=== PATIENT | female | born 1935 | race Caucasian/White ===

== ENCOUNTER 2019-08-12 14:50 | Inpatient (IN) | payer MEDICARE ==
[~2019-08-12] VITALS: Ht 154.9 cm; Wt 50.3 kg
[2019-08-12 15:21] LABS: BASOPHILS % (AUTO) 0.5 % (0.0-2.0); EOSINOPHILS # (AUTO) 0.1 K/uL (0.0-0.7); EOSINOPHILS % (AUTO) 1.3 % (0.0-7.0); HEMATOCRIT 32.4 % (31.2-41.9); HEMOGLOBIN 10.7 g/dL (10.9-14.3); LYMPHOCYTES # (AUTO) 0.4 K/uL (20.0-40.0); LYMPHOCYTES % (AUTO) 6.1 % (20.5-51.5); MEAN CORPUSCULAR HEMOGLOBIN 31.3 uug (24.7-32.8); MEAN CORPUSCULAR HGB CONC 33 g/dL (32.3-35.6); MEAN CORPUSCULAR VOLUME 94.6 fL (75.5-95.3); MONOCYTES # (AUTO) 0.8 K/uL (2.0-10.0); MONOCYTES % (AUTO) 12.2 % (0.0-11.0); NEUTROPHILS % (AUTO) 79.9 % (38.5-71.5); PLATELET COUNT (AUTO) 242 K/uL (179-408); RED BLOOD CELL COUNT(AUTO) 3.42 MIL/uL (3.63-4.92); WHITE BLOOD COUNT (AUTO) 6.3 K/uL (3.8-11.8)
--- NOTE | 2019-08-12 15:21 | NUR ---
PT IS IN ROOM #1B. DR MESA EVALUATED THE PT.
[2019-08-12 15:31] LABS: CHLORIDE 104 mmol/L (98-107); POTASSIUM 4.5 mmol/L (3.5-5.1)
[2019-08-12 15:41] LABS: ALANINE AMINOTRANSFERASE 25 U/L (14-59); ALKALINE PHOSPHATASE 119 U/L (50-136); ASPARTATE AMINOTRANSFERASE 20 U/L (15-37); BILIRUBIN,DIRECT 0.1 mg/dL (0.0-0.2); BILIRUBIN,TOTAL 0.7 mg/dL (0.2-1.0); CARBON DIOXIDE 27 mmol/L (21-32); CREATININE 1.5 mg/dL (0.6-1.3); GLUCOSE 92 mg/dL (74-106); TOTAL PROTEIN, SERUM 7.4 g/dL (6.4-8.2); UREA NITROGEN, BLOOD 27 mg/dL (7-18)
[2019-08-12 16:09] LABS: *BILIRUBIN,URIN NEGATIVE (NEGATIVE); *BLOOD, URINE NEGATIVE (NEGATIVE); *CLARITY,URINE CLEAR (CLEAR); *COLOR,URINE YELLOW (YELLOW); *KETONES,URINE NEGATIVE (NEGATIVE); *UROBILINOGEN,URINE 0.2 E.U./dl (NORMAL); LEUKOCYTE ESTERASE ,URINE NEGATIVE (NEGATIVE); NITRITE, URINE NEGATIVE (NEGATIVE); PH,URINE 5.5 (5.0-8.0); UGLUCOSE NEGATIVE (NEGATIVE)
[2019-08-12] MEDS ORDERED: FUROSEMIDE 20 MG/2 ML VIAL IV ONE (16:30)
[2019-08-12] MEDS ORDERED: FUROSEMIDE 20 MG/2 ML VIAL ONE (16:31)
--- NOTE | 2019-08-12 16:58 | NUR ---
REPORT WAS GIVEN TO CHANNING VEAG ON TELEMETRY FLOOR. PT WAS TRANSFERED TO ROOM #310.
--- NOTE | 2019-08-12 17:00 | NUR ---
RECEIVED PATIENT FROM ED 84 YEARS OLD FEMALE BY DARIUS TO ROOM 310 WITH DX OF CHF PLACED INTO BED FIXED AND MADE COMFORTABLE PATIENT IS ALERT TO SELF ATTEWMPTS TO RESPOND WHEN SPOKEN TO BUT SPEECH IS UNCLEAR RELATED TO CONFUSSION AND DISORIENTATION PATIENT IS UNABLE TO PARTICIPATE IN THE ADMISSION PROCESS AT THIS TIME ON ROOM AIR WITH NO SOB AT THIS TIME ORIENTED TO ROOM AND FACILITY PROTOCOL MUCH POSSIBLE BUT SHE IS UNABLE TO COMPREHEND CALLED DR RUTHERFORD AND NOTIFIED HIM THAT PATIENT IS HERE WITH DIET ORDERS AT THIS TIME WILL CONTINUE TO OBSERVE.
[2019-08-12 17:03] VITALS: BP 114/47
--- NOTE | 2019-08-12 18:06 | NUR ---
SITTING UP IN BED FEEDING SELF WITH HER FINGERS UNABLE TO REDIRECT HER TO USE THE UTENSILC BUT APPETITE IS GOOD WILL CONTINUE TO OBSERVE AND ASSIST NEEDED
--- NOTE | 2019-08-12 18:22 | NUR ---
CALLED THE CONTACT NUMBER ON THE FACE SHEET SPOKE WITH ANDRIY WHO REFERED ME TO JEFFREY AND PER JEFFREY PATIENT HAS POA CONSERVATOR BY THE NAME OF SAUL HER PHONE NUMBER IS [phone]
[2019-08-12] MEDS ORDERED: ACETAMINOPHEN 325 MG TABLET PO PRN (18:45)
[2019-08-12] MEDS ORDERED: ONDANSETRON 4 MG/2 ML VIAL IV PRN (18:45)
[2019-08-12] MEDS ORDERED: TEMAZEPAM 15 MG CAPSULE PO PRN (18:45)
[2019-08-12] MEDS ORDERED: MORPHINE SULFATE 2 MG/1 ML DISP.SYRIN IV PRN (18:45)
--- NOTE | 2019-08-12 20:00 | NUR ---
Patient received into care, laying in bed, resting comfortably. Patient is Cymraes speaking only and is alert/oriented x1. Due to language barrier, patient does not have the ability to verbalize if she had pain or discomfort, but FLACC indications reflect no sighs/symptoms of acute distress or discomfort at this time. Bed exit is on for safety. Personal items and call light are within reach. Safety and fall precaution measures are in place. Well continue to monitor and assess.
[2019-08-12 20:03] VITALS: BP 106/60
[2019-08-12] MEDS: DOCUSATE SODIUM 100 MG CAPSULE PO SCH (20:53)
[2019-08-12] MEDS: Z GUARD REMEDY PASTE 57 GM TUBE TOP SCH (20:59)
[2019-08-12] MEDS ORDERED: DOCUSATE SODIUM 250 MG CAPSULE PO SCH (21:00)
[2019-08-12] MEDS ORDERED: TEMAZEPAM 7.5 MG CAPSULE PO PRN (21:00)
[2019-08-13] VITALS: BP 109/64
[2019-08-13 04:08] VITALS: BP 102/44
--- NOTE | 2019-08-13 06:00 | NUR ---
Patient slept intermittently throughout night with no complaints of pain or discomfort verbalized or observed by nurse. All nursing care met promptly and patient is warm, dry and comfortable. All safety and fall precaution measures remain in place. Call light and personal items are within reach at all times.
[2019-08-13 07:04] LABS: BASOPHILS % (AUTO) 0.3 % (0.0-2.0); EOSINOPHILS # (AUTO) 0.1 K/uL (0.0-0.7); EOSINOPHILS % (AUTO) 2.2 % (0.0-7.0); HEMATOCRIT 31.7 % (31.2-41.9); HEMOGLOBIN 10.5 g/dL (10.9-14.3); LYMPHOCYTES # (AUTO) 0.5 K/uL (20.0-40.0); LYMPHOCYTES % (AUTO) 11.3 % (20.5-51.5); MEAN CORPUSCULAR HGB CONC 33 g/dL (32.3-35.6); MEAN CORPUSCULAR VOLUME 93.9 fL (75.5-95.3); MONOCYTES # (AUTO) 0.6 K/uL (2.0-10.0); NEUTROPHILS # (AUTO) 3.1 K/uL (1.8-8.9); NEUTROPHILS % (AUTO) 71.2 % (38.5-71.5); PLATELET COUNT (AUTO) 222 K/uL (179-408); RED BLOOD CELL COUNT(AUTO) 3.38 MIL/uL (3.63-4.92); WHITE BLOOD COUNT (AUTO) 4.3 K/uL (3.8-11.8)
[2019-08-13 07:53] LABS: THYROID STIMULATING HORMONE 4.359 mIU/mL (0.358-3.740)
--- NOTE | 2019-08-13 08:00 | NUR ---
RECEIVED PATIENT IN BED, AWAKE, AOX1. DENIES SOB OR PAIN AT THIS TIME. V-PACED ON TELEMETRY. RIGHT FA IV INTACT AND FLUSHED. ALL NEEDS MET AT THIS TIME. SAFETY AND FALL PREVENTION IN PLACE. CALL LIGHT IN REACH. BED LOW AND LOCKED. WILL CONTINUE TO MONITOR.
[2019-08-13 08:21] LABS: ALANINE AMINOTRANSFERASE 24 U/L (14-59); ALKALINE PHOSPHATASE 109 U/L (50-136); ASPARTATE AMINOTRANSFERASE 23 U/L (15-37); BILIRUBIN,TOTAL 0.8 mg/dL (0.2-1.0); CARBON DIOXIDE 27 mmol/L (21-32); CREATININE 1.5 mg/dL (0.6-1.3); GLUCOSE 88 mg/dL (74-106); MAGNESIUM 2.1 mg/dL (1.8-2.4); UREA NITROGEN, BLOOD 26 mg/dL (7-18)
[2019-08-13] MEDS: FOLIC ACID 1 MG TABLET PO SCH (08:43)
[2019-08-13] MEDS: PANTOPRAZOLE SODIUM 40 MG TABLET.DR PO SCH (08:43)
[2019-08-13] MEDS: SOTALOL HCL 80 MG TABLET PO SCH ×2 (08:43→21:00)
[2019-08-13] MEDS: QUETIAPINE FUMARATE 25 MG TABLET PO SCH ×3 (08:43→17:27)
[2019-08-13] MEDS: Z GUARD REMEDY PASTE 57 GM TUBE TOP SCH ×2 (08:44→21:00)
[2019-08-13 08:55] LABS: CHLORIDE 103 mmol/L (98-107); POTASSIUM 4.2 mmol/L (3.5-5.1)
[2019-08-13] MEDS ORDERED: Medication Not On Formulary EA ([Folic Acid] 1 MG) PO SCH (09:00)
[2019-08-13] MEDS ORDERED: FUROSEMIDE 20 MG/2 ML VIAL IV SCH (09:00)
[2019-08-13 09:48] LABS: EOSINOPHILS % (MANUAL) 2 % (0-8); LYMPHOCYTES % (MANUAL) 12 % (20-40); MONOCYTES % (MANUAL) 15 % (2-10); NEUTROPHILS % (MANUAL) 71 % (42-75)
[2019-08-13 11:02] VITALS: BP 101/46
[2019-08-13] MEDS: ASPIRIN 81 MG TAB.CHEW PO SCH (11:30)
--- NOTE | 2019-08-13 12:31 | NUR ---
WOUND CARE CONSULT: PT PRESENTS WITH DRY SKIN TO FEET AND SOME DRY DEBRIS WAS CLEANSED EASILY. PT IS INCONTINENT. RECOMMENDATIONS MADE FOR SKIN PROTECTION. DISCUSSED WITH NURSING STAFF. WILL SEE PRN. CURRENT JODI SCORE IS 15. IN AGREEMENT WITH PLAN OF CARE. Addendum: 08/13/19 at 1233 by JEMAL DENNIS RN Amended: Links added.
[2019-08-13 12:57] LABS: IRON, SERUM 42 ug/dL (50-175)
[2019-08-13 13:38] LABS: CHOLESTEROL 159 mg/dL (<200); HDL CHOLESTEROL 43 mg/dL (40-60); PHOSPHOROUS 3.6 mg/dL (2.5-4.9); TRIGLYCERIDES 136 MG/DL (30-150)
[2019-08-13 15:08] VITALS: BP 101/58
[2019-08-13] MEDS: ATORVASTATIN 10 MG TABLET PO SCH (17:27)
--- NOTE | 2019-08-13 20:00 | NUR ---
CHECKED WITH ASSOCIATE RELATIONS SPECIALIST REGARDING PT'S TELE-RHYTHM. ADVISED NO TELEMONITORING FOR PATIENT. NOTES FROM AM ASSOCIATE RELATIONS SPECIALIST REFLECT TELE D/C AT 1108H. REVIEWED ALL MD NOTES FROM 08/13/2019 AND COULD FIND NO REQUEST OR ORDER TO D/C TELEMONITORING. TELEMONITORING REINITIATED.
--- NOTE | 2019-08-13 20:00 | NUR ---
PATIENT RECEIVED INTO CARE, SLEEPING IN BED, RESTING COMFORTABLY. PATIENT HAS NO S/S OF ACUTE DISTRESS OR DISCOMFORT NOTED/OBSERVED BY NURSE. SAFETY AND FALL PRECAUTION MEASURES ARE IN PLACE. CALL LIGHT AND PERSONAL ITEMS ARE WITHIN REACH. WILL CONTINUE TO MONITOR AND ASSESS.
[2019-08-13 20:30] VITALS: BP 92/36
[2019-08-13] MEDS: DOCUSATE SODIUM 100 MG CAPSULE PO SCH (22:07)
[2019-08-14] VITALS: BP 100/36
[2019-08-14 04:00] VITALS: BP 107/48
[2019-08-14 07:07] LABS: BASOPHILS % (AUTO) 0.7 % (0.0-2.0); EOSINOPHILS # (AUTO) 0.1 K/uL (0.0-0.7); EOSINOPHILS % (AUTO) 2.4 % (0.0-7.0); HEMATOCRIT 30.7 % (31.2-41.9); HEMOGLOBIN 10.2 g/dL (10.9-14.3); LYMPHOCYTES # (AUTO) 0.4 K/uL (20.0-40.0); LYMPHOCYTES % (AUTO) 7.7 % (20.5-51.5); MEAN CORPUSCULAR HGB CONC 33 g/dL (32.3-35.6); MEAN CORPUSCULAR VOLUME 93.8 fL (75.5-95.3); MONOCYTES # (AUTO) 0.6 K/uL (2.0-10.0); MONOCYTES % (AUTO) 9.8 % (0.0-11.0); NEUTROPHILS # (AUTO) 4.6 K/uL (1.8-8.9); NEUTROPHILS % (AUTO) 79.4 % (38.5-71.5); PLATELET COUNT (AUTO) 216 K/uL (179-408); RED BLOOD CELL COUNT(AUTO) 3.28 MIL/uL (3.63-4.92); WHITE BLOOD COUNT (AUTO) 5.8 K/uL (3.8-11.8)
[2019-08-14 07:26] LABS: CARBON DIOXIDE 28 mmol/L (21-32); CHLORIDE 105 mmol/L (98-107); CREATINE KINASE, TOTAL 45 U/L (26-192); GLUCOSE 95 mg/dL (74-106); PHOSPHOROUS 4.6 mg/dL (2.5-4.9); UREA NITROGEN, BLOOD 34 mg/dL (7-18)
[2019-08-14 07:38] LABS: THYROID STIMULATING HORMONE 3.681 mIU/mL (0.358-3.740)
--- NOTE | 2019-08-14 07:45 | NUR ---
Received patient in Bed,Awake. No signs of distress noted. No SOB. No complain of pain or discomfort. Denies chest pain. Kept clean and comfortable. Will continue to monitor.
[2019-08-14] MEDS: FOLIC ACID 1 MG TABLET PO SCH (08:35)
[2019-08-14] MEDS: PANTOPRAZOLE SODIUM 40 MG TABLET.DR PO SCH (08:35)
[2019-08-14] MEDS: ASPIRIN 81 MG TAB.CHEW PO SCH (08:35)
[2019-08-14] MEDS: QUETIAPINE FUMARATE 25 MG TABLET PO SCH ×3 (08:36→17:20)
[2019-08-14] MEDS: SOTALOL HCL 80 MG TABLET PO SCH (09:00)
[2019-08-14] MEDS: Z GUARD REMEDY PASTE 57 GM TUBE TOP SCH ×2 (09:04→20:11)
[2019-08-14 11:34] VITALS: BP 93/36
[2019-08-14 12:54] LABS: *BILIRUBIN,URIN NEGATIVE (NEGATIVE); *CLARITY,URINE SLIGHTLY CLOUDY (CLEAR); *COLOR,URINE YELLOW (YELLOW); *KETONES,URINE NEGATIVE (NEGATIVE); *UROBILINOGEN,URINE 0.2 E.U./dl (NORMAL); LEUKOCYTE ESTERASE ,URINE TRACE (NEGATIVE); NITRITE, URINE POSITIVE (NEGATIVE); UGLUCOSE NEGATIVE (NEGATIVE)
[2019-08-14 12:55] LABS: *BLOOD, URINE TRACE (NEGATIVE)
[2019-08-14 13:00] LABS: BACTERIA,URINE MANY /HPF (NONE SEEN); RBC,URINE 0-3 /HPF (0-3); SQUAMOUS EPITHELIAL CELL,UR FEW /HPF (NONE SEEN)
[2019-08-14 15:58] VITALS: BP 93/73
[2019-08-14] MEDS: ATORVASTATIN 10 MG TABLET PO SCH (17:20)
--- NOTE | 2019-08-14 18:24 | NUR ---
Patient in Bed, awake and verbally responsive. Mauritanian Speaking. No signs of distress noted. No complain of pain or discomfort. Patient walk with physical therapy, patient still weak. Kept clean and comfortable. Will endorse to Oncoming Nurse.
[2019-08-14 19:54] VITALS: BP 113/41
[2019-08-14] MEDS: DOCUSATE SODIUM 100 MG CAPSULE PO SCH (20:10)
[2019-08-14] MEDS ORDERED: IV NS 1000 ML 1,000 ML IV PRN (22:45)
[2019-08-14] MEDS ORDERED: PIPERACILLIN/TAZO 2.25 GM VIAL ONE (23:58)
[2019-08-15] MEDS ORDERED: PIPERACILLIN/TAZO 2.25 G in IV DEXTROSE 5% 50 ML IV SCH ×2
[2019-08-15] MEDS: PIPERACILLIN/TAZO 2.25 G in IV DEXTROSE 5% 50 ML IV SCH ×2 (00:17→06:09)
[2019-08-15 04:52] VITALS: BP 115/45
--- NOTE | 2019-08-15 06:25 | NUR ---
Patient slept well through out the night. Noted w/ elevated Temp last night 100.2, PRN Tylenol 650mg PO given and cooling measures provided. Latest Temp 98.6. IV access on RFA 22g intact and patent w/ IVF infusing. Started on IV Zosyn 2.25gm for PNA. All needs attended. Will endorse accordingly
[2019-08-15 06:37] LABS: BASOPHILS % (AUTO) 0.5 % (0.0-2.0); EOSINOPHILS # (AUTO) 0.1 K/uL (0.0-0.7); EOSINOPHILS % (AUTO) 2.7 % (0.0-7.0); HEMOGLOBIN 9.9 g/dL (10.9-14.3); LYMPHOCYTES # (AUTO) 0.6 K/uL (20.0-40.0); LYMPHOCYTES % (AUTO) 12.7 % (20.5-51.5); MEAN CORPUSCULAR HGB CONC 33 g/dL (32.3-35.6); MEAN CORPUSCULAR VOLUME 94.5 fL (75.5-95.3); MONOCYTES # (AUTO) 0.7 K/uL (2.0-10.0); MONOCYTES % (AUTO) 13.8 % (0.0-11.0); NEUTROPHILS # (AUTO) 3.4 K/uL (1.8-8.9); NEUTROPHILS % (AUTO) 70.3 % (38.5-71.5); PLATELET COUNT (AUTO) 205 K/uL (179-408); RED BLOOD CELL COUNT(AUTO) 3.18 MIL/uL (3.63-4.92); WHITE BLOOD COUNT (AUTO) 4.9 K/uL (3.8-11.8)
[2019-08-15 06:46] LABS: ALANINE AMINOTRANSFERASE 19 U/L (14-59); ALKALINE PHOSPHATASE 91 U/L (50-136); ASPARTATE AMINOTRANSFERASE 19 U/L (15-37); BILIRUBIN,TOTAL 0.5 mg/dL (0.2-1.0); CARBON DIOXIDE 29 mmol/L (21-32); CHLORIDE 108 mmol/L (98-107); CREATININE 1.8 mg/dL (0.6-1.3); GLUCOSE 98 mg/dL (74-106); MAGNESIUM 2.1 mg/dL (1.8-2.4); PHOSPHOROUS 3.9 mg/dL (2.5-4.9); TOTAL PROTEIN, SERUM 6.8 g/dL (6.4-8.2); UREA NITROGEN, BLOOD 34 mg/dL (7-18)
--- NOTE | 2019-08-15 07:50 | NUR ---
Received patient in bed, awake. No signs of distress noted. No SOB. No complain of pain or discomfort. Kept clean and comfortable. kept the call button within easy reach. Will continue to monitor.
--- NOTE | 2019-08-15 08:15 | NUR ---
Seen and examined by Dr. Babb with New Order of CTA head w/o contrast.
[2019-08-15] MEDS: FOLIC ACID 1 MG TABLET PO SCH (08:23)
[2019-08-15] MEDS: PANTOPRAZOLE SODIUM 40 MG TABLET.DR PO SCH (08:23)
[2019-08-15] MEDS: QUETIAPINE FUMARATE 25 MG TABLET PO SCH ×3 (08:23→16:24)
[2019-08-15] MEDS ORDERED: ENOXAPARIN SODIUM 60 MG/0.6 ML DISP.SYRIN SQ SCH (09:00)
[2019-08-15] MEDS: Z GUARD REMEDY PASTE 57 GM TUBE TOP SCH (09:07)
[2019-08-15 11:09] VITALS: BP 112/49
[2019-08-15] MEDS ORDERED: PIPERACILLIN/TAZOBACTAM/D5W 3.375 G in PREMIXED 1 EACH IV SCH (14:00)
[2019-08-15 15:40] VITALS: BP 110/49
[2019-08-15 16:09] LABS: A/G RATIO 0.9 (0.7-1.7); ALPHA-1-GLOBULIN 0.3 g/dL (0.0-0.4); ALPHA-2-GLOBULIN 0.7 g/dL (0.4-1.0); BETA GLOBULIN 1.3 g/dL (0.7-1.3); GAMMA GLOBULIN 0.9 g/dL (0.4-1.8); GLOBULIN, TOTAL 3.3 g/dL (2.2-3.9); M-SPIKE Not Observed g/dL (Not Observed)
[2019-08-15] MEDS ORDERED: WARFARIN SODIUM 2 MG TABLET PO ONE (17:00)
--- NOTE | 2019-08-15 17:30 | NUR ---
Patient is awake and verbally responsive. Polish speaking. No signs of distress noted. No SOB. No complain of Pain or discomfort. patient with Order to be discharge to [facility], Spoke with Sandee and endorsed Accordingly. Discharge Instruction given to patient, Removed Wrist band but will keep IV site per Sandee RN for IV ATB therapy. Patient was Picked up by 2 EMT via [facility] in stable condition.
[2019-08-15] MEDS ORDERED: ATORVASTATIN 10 MG TABLET PO SCH (21:00)
[2019-08-16] MEDS ORDERED: PANTOPRAZOLE SODIUM 40 MG TABLET.DR PO SCH (07:00)
[2019-08-16] MEDS ORDERED: COUMADIN VARIABLE DOSE REMINDE XX SCH (17:00)
== END 2019-08-15 17:35 | DRG 177 ==
LOC: ER 14:50 → TELE3 16:50 → MEDSURG3 08-13 11:02 → TELE3 08-14 01:51 → MEDSURG3 08-14 19:14
PROVIDERS: ADMIT Internal Medicine; ATTEND Internal Medicine
DX: J69.0 Pneumonitis due to inhalation of food and vomit (principal); G92 Toxic encephalopathy; I50.23 Acute on chronic systolic (congestive) heart failure; N17.0 Acute kidney failure with tubular necrosis; N39.0 Urinary tract infection, site not specified; I13.0 Hypertensive heart and chronic kidney disease with heart failure and stage 1 through stage 4 chronic kidney disease, or unspecified chronic kidney disease; J98.11 Atelectasis; D68.59 Other primary thrombophilia; R62.7 Adult failure to thrive; Z68.21 Body mass index [BMI] 21.0-21.9, adult; I25.10 Atherosclerotic heart disease of native coronary artery without angina pectoris; Z95.1 Presence of aortocoronary bypass graft; Z95.0 Presence of cardiac pacemaker; I48.0 Paroxysmal atrial fibrillation; D64.9 Anemia, unspecified; R73.03 Prediabetes; Z86.73 Personal history of transient ischemic attack (TIA), and cerebral infarction without residual deficits; N18.9 Chronic kidney disease, unspecified; I70.0 Atherosclerosis of aorta; Z95.2 Presence of prosthetic heart valve; Z87.891 Personal history of nicotine dependence; I35.8 Other nonrheumatic aortic valve disorders; E78.5 Hyperlipidemia, unspecified; Z74.09 Other reduced mobility; F01.50 Vascular dementia, unspecified severity, without behavioral disturbance, psychotic disturbance, mood disturbance, and anxiety
CPT/HCPCS: 36415; 70030-TC; 70450; 71045; 82378; 83550; 83605; 83735; 83970; 84100; 84155; 84165; 84443; 85025; 85610; 85730; 86592; 87086; 87400; 93005; 93307; A4663; C1758; G0378; J1650; J1940; J2543; J7030; J7060